=== PATIENT | male | born 1975 | race Caucasian/White ===

== ENCOUNTER 2023-05-05 16:48 | Emergency (ER) | payer BC ==
[~2023-05-05] VITALS: Ht 187.9 cm; Wt 147.9 kg
[~2023-05-05 16:48] MED LIST: ALBUTEROL0.09 MG/A2 IH; BACTRIM DS 8001 TA1 PO; FLOMAX0.4 MG PO; MOTRIN800 MG PO; PERCOCET 325 MG1 TA2 PO; PERCOCET 325 MG1 TA3 PO; VICODIN ES 7501 TAB PO; ZITHROMAX Z PA250 MG PO; ZOFRAN4 MG PO
[2023-05-05 17:29] LABS: BASO # 0.1 10*3/uL (0.0-0.1); BASO % 0.8 % (0.0-1.0); EOS # 0.3 10*3/uL (0.0-0.4); EOS % 3.5 % (1.0-4.0); HEMATOCRIT 43.5 % (42.0-52.0); LYMPH # 1.8 10*3/uL (1.3-4.4); LYMPH % 24.3 % (27.0-41.0); MEAN CORPUSCULAR HGB 30.6 pg (27.0-31.0); MEAN CORPUSCULAR HGB CONC 35.2 g/dl (33.0-37.0); MONO # 0.6 10*3/uL (0.1-1.0); MONO % 7.7 % (3.0-9.0); NEUT # 4.8 10*3/uL (2.3-7.9); NEUT % 63.6 % (47.0-73.0); PLATELET COUNT AUTOMATED 250 10*3/uL (130-400); RED CELL DISTRI WIDTH 12.5 % (0-14.5); WHITE BLOOD COUNT 7.5 10*3/uL (4.8-10.8)
[2023-05-05 17:41] LABS: ACT PARTIAL THROMBO TIME 29.9 SECONDS (20.0-32.1)
[2023-05-05 17:50] LABS: ALKALINE PHOSPHATASE 74 U/L (46-116); BUN 15 mg/dl (9-23); CHLORIDE 108 mmol/L (98-107); POTASSIUM 3.8 mmol/L (3.4-5.1); SGPT/ALT 17 U/L (10-49); TOTAL PROTEIN 7.5 gm/dL (6.0-8.0)
== END 2023-05-05 18:30 | disposition short-term general hospital (02) ==
LOC: ED 16:48
PROVIDERS: Nurse Practitioner Family
DX: I63.9 Cerebral infarction, unspecified (principal); Z88.0 Allergy status to penicillin; Z87.442 Personal history of urinary calculi; Z98.890 Other specified postprocedural states

== ENCOUNTER 2025-01-10 22:11 | Emergency (ER) | payer OTHER ==
[~2025-01-10] VITALS: Ht 185.4 cm; Wt 142.9 kg
[2025-01-10] MEDS ORDERED: PROZAC10 MG PO (22:23)
[2025-01-10] MEDS ORDERED: MORPHINE Sulfate 2 MG/ML SYR IV ONE (22:30)
[2025-01-10] MEDS ORDERED: Ondansetron Hydrochloride 4 MG/2 ML VIAL IV ONE ×2 (22:30→23:55)
[2025-01-10] MEDS ORDERED: SODIUM CHLORIDE 0.9% 500 ML IV ONE (22:30)
[2025-01-10 22:49] LABS: BASO % 0.4 % (0.0-1.0); EOS # 0.1 10*3/uL (0.0-0.4); EOS % 0.9 % (1.0-4.0); HEMATOCRIT 43.3 % (42.0-52.0); MEAN CELL VOLUME 87.5 fl (80.0-94.0); MEAN CORPUSCULAR HGB 29.3 pg (27.0-31.0); MEAN CORPUSCULAR HGB CONC 33.5 g/dl (33.0-37.0); MEAN PLATELET VOLUME 10.1 fl (9.6-12.3); MONO # 0.9 10*3/uL (0.1-1.0); MONO % 9.2 % (3.0-9.0); NEUT # 6.8 10*3/uL (2.3-7.9); NEUT % 71.2 % (47.0-73.0); PLATELET COUNT AUTOMATED 222 10*3/uL (130-400); RED BLOOD COUNT 4.95 10*6/uL (4.50-5.90); RED CELL DISTRI WIDTH 12.6 % (0-14.5); WHITE BLOOD COUNT 9.5 10*3/uL (4.8-10.8)
[2025-01-10 23:09] LABS: ALKALINE PHOSPHATASE 80 U/L (46-116); BUN 24 mg/dl (9-23); CHLORIDE 105 mmol/L (98-107); LIPASE 46 U/L (12-53); POTASSIUM 3.9 mmol/L (3.4-5.1); SGPT/ALT 14 U/L (5-49); TOTAL PROTEIN 7.3 gm/dL (6.0-8.0)
[2025-01-10] MEDS ORDERED: HYDROmorphone Hydrochloride 1 MG/ML SYR IV ONE (23:55)
[2025-01-10] MEDS ORDERED: Ketorolac Tromethamine 30 MG/ML VIAL IV ONE (23:55)
[2025-01-10] MEDS ORDERED: Tamsulosin Hydrochloride 0.4 MG CAP PO ONE (23:55)
[2025-01-11 00:21] LABS: BILIRUBIN Negative (Negative); BLOOD Negative (Negative); CLARITY Cloudy (Clear); COLOR Dark Yellow (Yellow); GLUCOSE Negative (Negative); KETONE Trace (Negative); LEUKO ESTERASE Negative (Negative); NITRITE Negative (Negative); PH 5.5 (4.5-8.0); SPECIFIC GRAVITY >= 1.030 (1.001-1.030)
[2025-01-11 00:43] LABS: BACTERIA TRACE
[2025-01-11] MEDS ORDERED: NAPROSYN500 MG PO (01:05)
[2025-01-11] MEDS ORDERED: PERCOCET 5-3251 EACH PO (01:05)
[2025-01-11] MEDS ORDERED: FLOMAX0.4 MG PO (01:05)
[2025-01-11] MEDS ORDERED: Ondansetron4 MG PO (01:05)
== END 2025-01-11 01:25 | disposition home or self-care (01) ==
LOC: ED 22:11
PROVIDERS: Emergency Medicine
DX: N13.2 Hydronephrosis with renal and ureteral calculous obstruction (principal); R19.7 Diarrhea, unspecified; Z90.49 Acquired absence of other specified parts of digestive tract; Z88.0 Allergy status to penicillin; Z98.890 Other specified postprocedural states

== ENCOUNTER 2025-03-20 18:37 | Emergency (ER) | payer OTHER ==
[~2025-03-20] VITALS: Wt 144.7 kg
[~2025-03-20 18:37] MED LIST changes: +NAPROSYN500 MG PO; +Ondansetron4 MG PO; +PERCOCET 5-3251 EACH PO; +PROZAC10 MG PO
[2025-03-20] MEDS ORDERED: MELOXICAM15 MG PO (19:05)
[2025-03-20] MEDS ORDERED: diazePAM 5 MG TAB PO ONE (19:05)
[2025-03-20] MEDS ORDERED: Acetaminophen/Oxycodone 5 MG/325 MG TABLET PO ONE (19:05)
[2025-03-20] MEDS ORDERED: CYCLOBENZAPRINE10 MG PO (19:06)
== END 2025-03-20 19:35 | disposition home or self-care (01) ==
LOC: ED 18:37
DX: M54.2 Cervicalgia (principal); Z88.0 Allergy status to penicillin; Z86.73 Personal history of transient ischemic attack (TIA), and cerebral infarction without residual deficits; Z87.891 Personal history of nicotine dependence; Z98.890 Other specified postprocedural states